=== PATIENT | male | born 1975 | race American Indian/Alaskan Native ===

== ENCOUNTER 2022-02-03 08:52 | Inpatient (IN) | payer SELFPAY ==
[2022-02-03 10:13] LABS: Basophils # (Auto) 0.1 K/mm3 (0.0-0.1); Basophils % (Auto) 0.5 % (0.0-1.8); Eosinophils # (Auto) 0.4 K/mm3 (0.0-0.4); Eosinophils % (Auto) 3.6 % (0.0-4.3); Hematocrit 44.2 % (35.5-45.6); Hemoglobin 15.1 gm/dl (11.8-15.2); Lymphocytes % (Auto) 16.7 % (13.4-35.0); Mean Corpuscular HGB Conc 34 % (32-34); Mean Corpuscular Volume 95 fl (84-94); Monocytes # (Auto) 1.1 K/mm3 (0.0-0.8); Monocytes % (Auto) 9.1 % (0.0-7.3); Platelet Count 290 K/mm3 (140-440); Red Blood Count 4.63 M/mm3 (3.65-5.03); Red Cell Distribution Width 14.3 % (13.2-15.2)
[2022-02-03 10:32] LABS: Alanine Aminotransferase 32 units/L (7-56); Albumin 4.4 g/dL (3.9-5); BUN/Creatinine Ratio 9; Bilirubin,Direct 0.2 mg/dL (0-0.2); Blood Urea Nitrogen 9 mg/dL (9-20); Calcium 9.2 mg/dL (8.4-10.2); Hemolysis Index 17
[2022-02-03] MEDS ORDERED: SODIUM CHLORIDE 0.9% 1000 ML 1,000 ML IV ONE ×2 (10:47→17:15)
[2022-02-03 11:10] LABS: Bilirubin,Urine NEG (Negative); Blood,Urine SM (Negative); Color,Urine Yellow (Yellow); Mucus,Urine FEW /HPF; Urobilinogen,Urine < 2.0 mg/dL (<2.0)
[2022-02-03] MEDS ORDERED: MORPHINE 4 MG/1 ML INJ IV ONE ×2 (14:26→17:15)
[2022-02-03] MEDS ORDERED: ONDANSETRON 4 MG/2 ML INJ IV ONE (14:26)
[2022-02-03] MEDS ORDERED: FAMOTIDINE 20 MG/2 ML INJ IV ONE (14:27)
--- NOTE | 2022-02-03 15:13 | Emergency Department Report ---
ED Abdominal Pain HPI - General Chief Complaint: Abdominal Pain Stated Complaint: STOMACH PAIN Time Seen by Provider: 02/03/22 10:12 Source: patient Mode of arrival: Ambulatory Limitations: No Limitations - History of Present Illness Initial Comments: 46-year-old male with no significant past medical or surgical history presents to the hospital complaining of generalized abdominal pain since yesterday a.m. Symptoms worsened last night. Pain described as generalized, burning, moderate to severe, and worse with palpation. No alleviating factors reported. decreased appetite reported. He denies associated symptoms including fever, nausea, vomiting, diarrhea, melena, or blood in stool. - Related Data Allergies Allergy/AdvReac Type Severity Reaction Status Date / Time No Known Allergies Allergy Verified 02/03/22 09:39 ED Review of Systems ROS: Stated complaint: STOMACH PAIN Other details as noted in HPI Comment: All other systems reviewed and negative ED Physical Exam - General Limitations: No Limitations - Other Other exam information: General: No acute distress Head: Atraumatic Eyes: normal appearance ENT: Moist mucous membranes Neck: Normal appearance, no midline tenderness Chest: Clear to auscultation bilaterally CV: Regular rate and rhythm Abdomen: Soft, normal bowel sounds, denies abdominal tenderness, no rebound or guarding Back: Normal inspection Extremity: Normal inspection, full range of motion Neuro: Alert O x 3, no facial asymmetry, speech clear, no gross motor sensory deficit Psych: Appropriate behavior Skin: No rash ED Course Vital Signs 02/03/22 09:36 Temperature 98 F Pulse Rate 98 H Respiratory 18 Rate Blood Pressure 160/98 [Right] O2 Sat by Pulse 98 Oximetry ED Medical Decision Making - Lab Data Result diagrams: 02/03/22 09:49 02/03/22 09:49 Lab Results 02/03/22 02/03/22 02/03/22 Range/Units 09:49 09:49 10:39 WBC 12.0 H (4.5-11.0) K/mm3 RBC 4.63 (3.65-5.03) M/mm3 Hgb 15.1 (11.8-15.2) gm/dl Hct 44.2 (35.5-45.6) % MCV 95 H (84-94) fl MCH 33 H (28-32) pg MCHC 34 (32-34) % RDW 14.3 (13.2-15.2) % Plt Count 290 (140-440) K/mm3 Lymph % (Auto) 16.7 (13.4-35.0) % [place] % (Auto) 9.1 H (0.0-7.3) % Eos % (Auto) 3.6 (0.0-4.3) % Baso % (Auto) 0.5 (0.0-1.8) % Lymph # (Auto) 2.0 (1.2-5.4) K/mm3 [place] # (Auto) 1.1 H (0.0-0.8) K/mm3 Eos # (Auto) 0.4 (0.0-0.4) K/mm3 Baso # (Auto) 0.1 (0.0-0.1) K/mm3 Seg Neutrophils % 70.1 H (40.0-70.0) % Seg Neutrophils # 8.4 H (1.8-7.7) K/mm3 Sodium 139 (137-145) mmol/L Potassium 3.1 L (3.6-5.0) mmol/L Chloride 102.0 (98-107) mmol/L Carbon Dioxide 24 (22-30) mmol/L Anion Gap 16 mmol/L BUN 9 (9-20) mg/dL Creatinine 1.0 (0.8-1.3) mg/dL Estimated GFR > 60 ml/min BUN/Creatinine Ratio 9 % Glucose 98 (75-100) mg/dL Calcium 9.2 (8.4-10.2) mg/dL Total Bilirubin 0.90 (0.1-1.2) mg/dL Direct Bilirubin 0.2 (0-0.2) mg/dL Indirect Bilirubin 0.7 mg/dL AST 34 (5-40) units/L ALT 32 (7-56) units/L Alkaline Phosphatase 99 (35-129) units/L Total Protein 8.0 (6.3-8.2) g/dL Albumin 4.4 (3.9-5) g/dL Albumin/Globulin Ratio 1.2 % Lipase 441 H (13-60) units/L Urine Color Yellow (Yellow) Urine Turbidity Clear (Clear) Urine pH 7.0 (5.0-7.0) Ur Specific [place] 1.010 (1.003-1.030) Urine Protein 100 mg/dl (Negative) mg/dL Urine Glucose (UA) Neg (Negative) mg/dL Urine Ketones Neg (Negative) mg/dL Urine Blood Sm (Negative) Urine Nitrite Neg (Negative) Urine Bilirubin Neg (Negative) Urine Urobilinogen < 2.0 (<2.0) mg/dL Ur Leukocyte Esterase Tr (Negative) Urine WBC (Auto) 3.0 (0.0-6.0) /HPF Urine RBC (Auto) 8.0 (0.0-6.0) /HPF U Epithel Cells (Auto) < 1.0 (0-13.0) /HPF Urine Mucus Few /HPF - Radiology Data Radiology results: report reviewed - Medical Decision Making 46-year-old male presents to the hospital with generalized abdominal pain without nausea vomiting. Pain radiation to the back. Elevated lipase and CT findings of acute pancreatitis. Patient endorses daily alcohol use likely the cause of pancreatitis. Pain improved with morphine and normal saline. Patient will be admitted to the hospital service for further treatment Critical Care Time: No Critical care attestation.: If time is entered above; I have spent that time in minutes in the direct care of this critically ill patient, excluding procedure time. ED Disposition Clinical Impression: Acute pancreatitis, Daily consumption of alcohol Disposition: ADMITTED INPATIENT Is pt being admited?: Yes Condition: Stable Time of Disposition: 17:18 (Dr. Parr)
[2022-02-03] MEDS ORDERED: SODIUM CHLORIDE 0.9% 1000 ML 1,000 ML ONE (15:34)
--- NOTE | 2022-02-03 16:35 | Cat Scan Report ---
CT ABDOMEN AND PELVIS WITH CONTRAST INDICATION / CLINICAL INFORMATION: abd pain. TECHNIQUE: Axial CT images were obtained through the abdomen and pelvis after 100 cc of Omnipaque [address] scans at this location are performed using CT dose reduction for ALARA by means of automated exposure control. COMPARISON: None available. FINDINGS: LOWER CHEST: No significant abnormality. AORTA / ARTERIES: No significant abnormality. IVC / VEINS: No significant abnormality. LYMPH NODES: No significant adenopathy. COLON: No significant abnormality. APPENDIX: No significant abnormality. STOMACH / SMALL BOWEL: Mild inflammation around the first and second portions of the duodenum. Otherw ise the stomach and small bowel are unremarkable. PERITONEUM: No free fluid. No free air. No fluid collection. LIVER: No significant abnormality. GALLBLADDER: No significant abnormality. BILE DUCTS: No significant abnormality. PANCREAS: There is peripancreatic inflammation. There is complete enhancement of the pancreas without peripancreatic fluid collection. SPLEEN: No significant abnormality. ADRENALS: No significant abnormality. RIGHT KIDNEY / URETER: No significant abnormality. LEFT KIDNEY / URETER: No significant abnormality. URINARY BLADDER: No significant abnormality. REPRODUCTIVE ORGANS: No significant abnormality. SKELETAL SYSTEM: No significant abnormality. ADDITIONAL FINDINGS: None. IMPRESSION: 1. Findings most suggestive of acute uncomplicated pancreatitis. Signer Name: Jeff Santiago DO Signed: 02/03/2022 4:31 PM Workstation Name: [id number]
[2022-02-03] MEDS ORDERED: POTASSIUM CHLORIDE ER 20 MEQ TAB PO ONE (17:00)
[2022-02-03] MEDS ORDERED: ACETAMINOPHEN 325 MG TAB PO PRN ×2 (20:01→21:19)
[2022-02-03] MEDS ORDERED: ONDANSETRON 4 MG/2 ML INJ IV PRN ×2 (20:01→21:19)
[2022-02-03] MEDS ORDERED: MORPHINE 2 MG/1 ML INJ IV PRN (20:01)
--- NOTE | 2022-02-03 21:19 | History and Physical Report ---
History of Present Illness Date of examination: 02/03/22 Date of admission: 02/03/2022 Chief complaint: Severe abdominal pain for 1 day History of present illness: 46-year-old -[place] male with no significant past medical history comes in for severe abdominal pain since yesterday morning. Pain is about 10 on a daily of 1-10. Sharp in nature. Intermittent. Associated with nausea. No vomiting or diarrhea. Also decreased appetite. Patient consumes alcohol in moderation on a regular basis. Patient lying in a reclining chair during my exam. In some distress because of the pain. Eating is an exacerbating factor. Not eating is a relieving factor. Past History Past Medical History: No medical history, hypertension (-Borderline-not on any medications) Past Surgical History: No surgical history Social history: lives with family, full code, other (Regular alcohol use: daily 3 drinks of vodka) Family history:HTN Review of systems Constitutional no weight loss or weight gain no fever or chills HEENT no sore throat no post nasal drip no diplopia Neck no neck stiffness no lymph gland enlargement Chest and lungs no shortness of breath cough or wheezing CVS no chest pain no diaphoresis no palpitations GI severe abdominal pain associated with nausea Genitourinary system no dysuria no flank pain Musculoskeletal system no muscle pains 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 Skin no rash no itching Psychiatric no depression no homicidal or suicidal tendencies Hematologic no lymphedema or bruising Endocrine no polydipsia no polyuria no cold intolerance no heat intolerance Past History Past Medical History: No medical history, hypertension (-Borderline-not on any medications) Past Surgical History: No surgical history Social history: lives with family, full code, other (Regular alcohol use: daily 3 drinks of vodka) Medications and Allergies Allergies Allergy/AdvReac Type Severity Reaction Status Date / Time No Known Allergies Allergy Verified 02/03/22 09:39 Home Medications Medication Instructions Recorded Confirmed Last Taken Type RX: No Known Home Medications [No 02/04/22 02/04/22 Unknown History Reported Home Medications] Active Meds: Active Medications Acetaminophen (Acetaminophen 325 Mg Tab) 650 mg PO Q4H PRN PRN Reason: Pain MILD(1-3)/Fever >100.5/DUNNE Morphine Sulfate (Morphine 2 Mg/1 Ml Inj) 2 mg IV Q4H PRN PRN Reason: Pain, Moderate (4-6) Morphine Sulfate (Morphine 4 Mg/1 Ml Inj) 4 mg IV Q4H PRN PRN Reason: Pain , Severe (7-10) Ondansetron HCl (Ondansetron 4 Mg/2 Ml Inj) 4 mg IV Q8H PRN PRN Reason: Nausea And Vomiting Sodium Chloride (Sodium Chloride 0.9% 10 Ml Flush Syringe) 10 ml IV BID DORIS Sodium Chloride (Sodium Chloride 0.9% 10 Ml Flush Syringe) 10 ml IV PRN PRN PRN Reason: LINE FLUSH Exam - Constitutional Vitals: Temp Pulse Resp BP Pulse Ox 98 F 98 H 18 160/98 98 02/03/22 09:36 02/03/22 09:36 02/03/22 09:36 02/03/22 09:36 02/03/22 09:36 General appearance: Present: mild distress, well-nourished - EENT Eyes: Present: PERRL ENT: hearing intact, clear oral mucosa - Neck Neck: Present: supple, normal ROM - Respiratory Respiratory effort: normal Respiratory: bilateral: CTA - Cardiovascular Heart rate: 78 Rhythm: regular Heart Sounds: Present: S1 & S2. Absent: rub, click - Extremities Extremities: no ischemia, pulses intact, pulses symmetrical, No edema Peripheral Pulses: within normal limits - Abdominal General gastrointestinal: Present: soft, tender, non-distended, normal bowel sounds Localized gastrointestinal: tender: diffuse, guarding: diffuse, rebound: diffuse Male genitourinary: Present: normal - Integumentary Integumentary: Present: clear, warm, dry - Musculoskeletal Musculoskeletal: gait normal, strength equal bilaterally - Psychiatric Psychiatric: appropriate mood/affect, intact judgment & insight - Neurologic Neurologic: CNII-XII intact, moves all extremities - Allied Health Allied health notes reviewed: nursing, case management Results - Labs CBC & Chem 7: 02/03/22 09:49 02/03/22 09:49 Labs: Laboratory Last Values WBC 12.0 K/mm3 (4.5-11.0) H 02/03/22 09:49 RBC 4.63 M/mm3 (3.65-5.03) 02/03/22 09:49 Hgb 15.1 gm/dl (11.8-15.2) 02/03/22 09:49 Hct 44.2 % (35.5-45.6) 02/03/22 09:49 MCV 95 fl (84-94) H 02/03/22 09:49 MCH 33 pg (28-32) H 02/03/22 09:49 MCHC 34 % (32-34) 02/03/22 09:49 RDW 14.3 % (13.2-15.2) 02/03/22 09:49 Plt Count 290 K/mm3 (140-440) 02/03/22 09:49 Lymph % (Auto) 16.7 % (13.4-35.0) 02/03/22 09:49 [place] % (Auto) 9.1 % (0.0-7.3) H 02/03/22 09:49 Eos % (Auto) 3.6 % (0.0-4.3) 02/03/22 09:49 Baso % (Auto) 0.5 % (0.0-1.8) 02/03/22 09:49 Lymph # (Auto) 2.0 K/mm3 (1.2-5.4) 02/03/22 09:49 [place] # (Auto) 1.1 K/mm3 (0.0-0.8) H 02/03/22 09:49 Eos # (Auto) 0.4 K/mm3 (0.0-0.4) 02/03/22 09:49 Baso # (Auto) 0.1 K/mm3 (0.0-0.1) 02/03/22 09:49 Seg Neutrophils % 70.1 % (40.0-70.0) H 02/03/22 09:49 Seg Neutrophils # 8.4 K/mm3 (1.8-7.7) H 02/03/22 09:49 Sodium 139 mmol/L (137-145) 02/03/22 09:49 Potassium 3.1 mmol/L (3.6-5.0) L 02/03/22 09:49 Chloride 102.0 mmol/L (98-107) 02/03/22 09:49 Carbon Dioxide 24 mmol/L (22-30) 02/03/22 09:49 Anion Gap 16 mmol/L 02/03/22 09:49 BUN 9 mg/dL (9-20) 02/03/22 09:49 Creatinine 1.0 mg/dL (0.8-1.3) 02/03/22 09:49 Estimated GFR > 60 ml/min 02/03/22 09:49 BUN/Creatinine Ratio 9 % 02/03/22 09:49 Glucose 98 mg/dL (75-100) 02/03/22 09:49 Calcium 9.2 mg/dL (8.4-10.2) 02/03/22 09:49 Total Bilirubin 0.90 mg/dL (0.1-1.2) 02/03/22 09:49 Direct Bilirubin 0.2 mg/dL (0-0.2) 02/03/22 09:49 Indirect Bilirubin 0.7 mg/dL 02/03/22 09:49 AST 34 units/L (5-40) 02/03/22 09:49 ALT 32 units/L (7-56) 02/03/22 09:49 Alkaline Phosphatase 99 units/L (35-129) 02/03/22 09:49 Total Protein 8.0 g/dL (6.3-8.2) 02/03/22 09:49 Albumin 4.4 g/dL (3.9-5) 02/03/22 09:49 Albumin/Globulin Ratio 1.2 % 02/03/22 09:49 Lipase 441 units/L (13-60) H 02/03/22 09:49 Urine Color Yellow (Yellow) 02/03/22 10:39 Urine Turbidity Clear (Clear) 02/03/22 10:39 Urine pH 7.0 (5.0-7.0) 02/03/22 10:39 Ur Specific [place] 1.010 (1.003-1.030) 02/03/22 10:39 Urine Protein 100 mg/dl mg/dL (Negative) 02/03/22 10:39 Urine Glucose (UA) Neg mg/dL (Negative) 02/03/22 10:39 Urine Ketones Neg mg/dL (Negative) 02/03/22 10:39 Urine Blood Sm (Negative) 02/03/22 10:39 Urine Nitrite Neg (Negative) 02/03/22 10:39 Urine Bilirubin Neg (Negative) 02/03/22 10:39 Urine Urobilinogen < 2.0 mg/dL (<2.0) 02/03/22 10:39 Ur Leukocyte Esterase Tr (Negative) 02/03/22 10:39 Urine WBC (Auto) 3.0 /HPF (0.0-6.0) 02/03/22 10:39 Urine RBC (Auto) 8.0 /HPF (0.0-6.0) 02/03/22 10:39 U Epithel Cells (Auto) < 1.0 /HPF (0-13.0) 02/03/22 10:39 Urine Mucus Few /HPF 02/03/22 10:39 Short CBC 02/03/22 Range/Units 09:49 WBC 12.0 H (4.5-11.0) K/mm3 Hgb 15.1 (11.8-15.2) gm/dl Hct 44.2 (35.5-45.6) % Plt Count 290 (140-440) K/mm3 BMP 02/03/22 09:49 Sodium 139 Potassium 3.1 L Chloride 102.0 Carbon Dioxide 24 BUN 9 Creatinine 1.0 Glucose 98 Calcium 9.2 Liver Function 02/03/22 Range/Units 09:49 Total Bilirubin 0.90 (0.1-1.2) mg/dL Direct Bilirubin 0.2 (0-0.2) mg/dL AST 34 (5-40) units/L ALT 32 (7-56) units/L Alkaline Phosphatase 99 (35-129) units/L Albumin 4.4 (3.9-5) g/dL Urine 02/03/22 Range/Units 10:39 Urine Color Yellow (Yellow) Urine pH 7.0 (5.0-7.0) Ur Specific [place] 1.010 (1.003-1.030) Urine Protein 100 mg/dl (Negative) mg/dL Urine Glucose (UA) Neg (Negative) mg/dL - Imaging and Cardiology Imaging and Cardiology: CT of the abdomen Mild inflammation around the first and second portion of the duodenum. Otherwise the stomach and small bowel are unremarkable. Pancreas there is peripancreatic inflammation. Enhancement of the pancreas without peripancreatic fluid collection. Assessment and Plan Advance Directives: Yes (Full Code) VTE prophylaxis?: Chemical Plan of care discussed with patient/family: Yes - Patient Problems (1) Acute pancreatitis Current Visit: Yes Status: Acute Qualifiers: Pancreatitis type: alcohol induced Plan to address problem: Pancreatitis is mild to moderate Lipase is 441 Pancreatic inflammation is present Will admit for 24 to 48 hours Ice chips only Counseled about regular alcohol intake and its effects on pancreas (2) EtOH dependence Current Visit: Yes Status: Chronic Qualifiers: Substance use status: uncomplicated Qualified Code(s): F10.20 - Alcohol dependence, uncomplicated Plan to address problem: CIWA protocol initiated (3) Hypokalemia Current Visit: Yes Status: Acute Plan to address problem: Supplemented (4) DVT prophylaxis Current Visit: Yes Status: Acute Plan to address problem: On heparin and GI prophylaxis (5) Advance care planning Current Visit: Yes Status: Acute Plan to address problem: Disease education conducted, care plan discussed, diagnosis discussed, prognosis discussed. Patient is full code. Patient acknowledged understanding and agreement with care plan. +30 minutes.
[2022-02-03] MEDS: MORPHINE 2 MG/1 ML INJ IV PRN (22:46)
[2022-02-03] MEDS: D5W/0.9% NACL 1,000 ML IV SCH (22:47)
[2022-02-04] MEDS: MORPHINE 2 MG/1 ML INJ IV PRN ×2 (02:42→07:57)
[2022-02-04] MEDS: LORazepam 2 MG/ML VIAL IV PRN (02:44)
[2022-02-04 06:24] LABS: Basophils % (Auto) 0.4 % (0.0-1.8); Eosinophils # (Auto) 0.7 K/mm3 (0.0-0.4); Eosinophils % (Auto) 6.6 % (0.0-4.3); Hematocrit 36.3 % (35.5-45.6); Hemoglobin 12.9 gm/dl (11.8-15.2); Lymphocytes # (Auto) 2.4 K/mm3 (1.2-5.4); Lymphocytes % (Auto) 23.7 % (13.4-35.0); Mean Corpuscular HGB Conc 36 % (32-34); Mean Corpuscular Volume 96 fl (84-94); Monocytes # (Auto) 0.8 K/mm3 (0.0-0.8); Monocytes % (Auto) 7.8 % (0.0-7.3); Platelet Count 242 K/mm3 (140-440); Red Blood Count 3.79 M/mm3 (3.65-5.03); Red Cell Distribution Width 13.9 % (13.2-15.2)
[2022-02-04 06:47] LABS: Alanine Aminotransferase 20 units/L (7-56); Albumin 3.5 g/dL (3.9-5); BUN/Creatinine Ratio 8; Blood Urea Nitrogen 8 mg/dL (9-20); Calcium 8.7 mg/dL (8.4-10.2); Hemolysis Index 3
[2022-02-04] MEDS ORDERED: POTASSIUM CHLORIDE ER 20 MEQ TAB PO ONE (07:20)
[2022-02-04] MEDS: D5W/0.9% NACL 1,000 ML IV SCH ×2 (07:58→17:57)
--- NOTE | 2022-02-04 09:14 | Progress Note ---
Assessment and Plan Assessment and plan: CT of the abdomen Mild inflammation around the first and second portion of the duodenum. Otherwise the stomach and small bowel are unremarkable. Pancreas there is peripancreatic inflammation. Enhancement of the pancreas without peripancreatic fluid collection. --Acute pancreatitis Lipase is 441-227 IV fluids, pain medications start clear liquids as tolerated Continue supportive care --EtOH dependence Strongly advised to quit alcohol intake Recommend alcohol rehabilitation if needed Thiamine folic acid --Monitor alcohol withdrawal symptoms CIWA protocol as needed Thiamine folic acid and multivitamin -- Hypokalemia Supplemented, monitor electrolytes --DVT prophylaxis Subcu Lovenox --Full code; -- Advance care planning Disease education conducted, care plan discussed, diagnosis discussed, , prognosis discussed. Patient acknowledged understanding and agreement with care plan. +30 minutes. Closely monitor the patient and adjust management as needed Plan of care reviewed with the patient and his nurse Disposition; follow clinically, discharge when stable History Interval history: I have seen and examined the patient at the bedside Patient's chart and medications reviewed Patient was admitted with acute pancreatitis Patient has significant history of alcohol use Complains of mild abdominal pain and mild nausea Vital signs noted Hospitalist Physical - Constitutional Vitals: Temp Pulse Resp BP Pulse Ox 98.5 F 72 16 123/79 100 02/04/22 04:39 02/04/22 04:39 02/04/22 04:39 02/04/22 04:39 02/04/22 08:04 General appearance: Present: mild distress, well-nourished - EENT Eyes: Present: PERRL, EOM intact - Neck Neck: Present: supple, normal ROM - Respiratory Respiratory effort: normal Respiratory: bilateral: diminished, negative: rales, rhonchi, wheezing - Cardiovascular Rhythm: regular Heart Sounds: Present: S1 & S2 - Extremities Extremities: no ischemia, No edema - Abdominal General gastrointestinal: soft, tender (Vague tenderness all over her abdomen ,no guarding no rigidity), normal bowel sounds - Integumentary Integumentary: Present: clear, warm - Psychiatric Psychiatric: appropriate mood/affect, cooperative - Neurologic Neurologic: CNII-XII intact, moves all extremities Results - Labs CBC & Chem 7: 02/04/22 05:20 02/04/22 05:20 Labs: Laboratory Last Values WBC 10.2 K/mm3 (4.5-11.0) 02/04/22 05:20 RBC 3.79 M/mm3 (3.65-5.03) 02/04/22 05:20 Hgb 12.9 gm/dl (11.8-15.2) 02/04/22 05:20 Hct 36.3 % (35.5-45.6) D 02/04/22 05:20 MCV 96 fl (84-94) H 02/04/22 05:20 MCH 34 pg (28-32) H 02/04/22 05:20 MCHC 36 % (32-34) H 02/04/22 05:20 RDW 13.9 % (13.2-15.2) 02/04/22 05:20 Plt Count 242 K/mm3 (140-440) 02/04/22 05:20 Lymph % (Auto) 23.7 % (13.4-35.0) 02/04/22 05:20 [place] % (Auto) 7.8 % (0.0-7.3) H 02/04/22 05:20 Eos % (Auto) 6.6 % (0.0-4.3) H 02/04/22 05:20 Baso % (Auto) 0.4 % (0.0-1.8) 02/04/22 05:20 Lymph # (Auto) 2.4 K/mm3 (1.2-5.4) 02/04/22 05:20 [place] # (Auto) 0.8 K/mm3 (0.0-0.8) 02/04/22 05:20 Eos # (Auto) 0.7 K/mm3 (0.0-0.4) H 02/04/22 05:20 Baso # (Auto) 0.0 K/mm3 (0.0-0.1) 02/04/22 05:20 Seg Neutrophils % 61.5 % (40.0-70.0) 02/04/22 05:20 Seg Neutrophils # 6.3 K/mm3 (1.8-7.7) 02/04/22 05:20 Sodium 142 mmol/L (137-145) 02/04/22 05:20 Potassium 3.2 mmol/L (3.6-5.0) L 02/04/22 05:20 Chloride 106.6 mmol/L (98-107) 02/04/22 05:20 Carbon Dioxide 24 mmol/L (22-30) 02/04/22 05:20 Anion Gap 15 mmol/L 02/04/22 05:20 BUN 8 mg/dL (9-20) L 02/04/22 05:20 Creatinine 1.0 mg/dL (0.8-1.3) 02/04/22 05:20 Estimated GFR > 60 ml/min 02/04/22 05:20 BUN/Creatinine Ratio 8 % 02/04/22 05:20 Glucose 93 mg/dL (75-100) 02/04/22 05:20 Calcium 8.7 mg/dL (8.4-10.2) 02/04/22 05:20 Total Bilirubin 0.80 mg/dL (0.1-1.2) 02/04/22 05:20 Direct Bilirubin 0.2 mg/dL (0-0.2) 02/03/22 09:49 Indirect Bilirubin 0.7 mg/dL 02/03/22 09:49 AST 22 units/L (5-40) 02/04/22 05:20 ALT 20 units/L (7-56) 02/04/22 05:20 Alkaline Phosphatase 82 units/L (35-129) 02/04/22 05:20 Total Protein 5.8 g/dL (6.3-8.2) L D 02/04/22 05:20 Albumin 3.5 g/dL (3.9-5) L 02/04/22 05:20 Albumin/Globulin Ratio 1.5 % 02/04/22 05:20 Amylase 164 units/L (27-131) H 02/04/22 05:20 Lipase 227 units/L (13-60) H 02/04/22 05:20 Urine Color Yellow (Yellow) 02/03/22 10:39 Urine Turbidity Clear (Clear) 02/03/22 10:39 Urine pH 7.0 (5.0-7.0) 02/03/22 10:39 Ur Specific [place] 1.010 (1.003-1.030) 02/03/22 10:39 Urine Protein 100 mg/dl mg/dL (Negative) 02/03/22 10:39 Urine Glucose (UA) Neg mg/dL (Negative) 02/03/22 10:39 Urine Ketones Neg mg/dL (Negative) 02/03/22 10:39 Urine Blood Sm (Negative) 02/03/22 10:39 Urine Nitrite Neg (Negative) 02/03/22 10:39 Urine Bilirubin Neg (Negative) 02/03/22 10:39 Urine Urobilinogen < 2.0 mg/dL (<2.0) 02/03/22 10:39 Ur Leukocyte Esterase Tr (Negative) 02/03/22 10:39 Urine WBC (Auto) 3.0 /HPF (0.0-6.0) 02/03/22 10:39 Urine RBC (Auto) 8.0 /HPF (0.0-6.0) 02/03/22 10:39 U Epithel Cells (Auto) < 1.0 /HPF (0-13.0) 02/03/22 10:39 Urine Mucus Few /HPF 02/03/22 10:39 [place]/IV: Voiding Method Toilet Active Medications - Current Medications Current Medications: Generic Name Dose Route Start Last Admin Trade Name Freq PRN Reason Stop Dose Admin Acetaminophen 650 mg 02/03/22 20:01 Acetaminophen 325 Mg Tab PO Q4H PRN Pain MILD(1-3)/Fever >100.5/DUNNE Dextrose/Sodium Chloride 1,000 mls @ 100 mls/hr 02/03/22 22:00 02/04/22 07:58 D5ns IV 100 mls/hr DIRECT DORIS Administration Lorazepam 2 mg 02/03/22 21:24 02/04/22 02:44 Lorazepam 2 Mg/Ml Vial IV 2 mg Q1H PRN Administration [facility] 8-15 Morphine Sulfate 4 mg 02/03/22 20:01 Morphine 4 Mg/1 Ml Inj IV Q4H PRN Pain , Severe (7-10) Morphine Sulfate 2 mg 02/03/22 21:19 02/04/22 07:57 Morphine 2 Mg/1 Ml Inj IV 2 mg Q4H PRN Administration Pain, Moderate (4-6) Ondansetron HCl 4 mg 02/03/22 20:01 Ondansetron 4 Mg/2 Ml Inj IV Q8H PRN Nausea And Vomiting Sodium Chloride 10 ml 02/03/22 22:00 02/03/22 22:57 Sodium Chloride 0.9% 10 Ml Flush Syringe IV 10 ml BID DORIS Administration Sodium Chloride 10 ml 02/03/22 20:01 Sodium Chloride 0.9% 10 Ml Flush Syringe IV PRN PRN LINE FLUSH
[2022-02-04] MEDS: MORPHINE 4 MG/1 ML INJ IV PRN ×2 (16:33→21:53)
[2022-02-04] MEDS ORDERED: ENOXAPARIN 40 MG/0.4 ML INJ SUB-Q SCH (22:00)
[2022-02-05] MEDS: LORazepam 2 MG/ML VIAL IV PRN (00:14)
[2022-02-05] MEDS: D5W/0.9% NACL 1,000 ML IV SCH (05:34)
[2022-02-05] MEDS ORDERED: POTASSIUM CHLORIDE ER 20 MEQ TAB PO NR (07:36)
[2022-02-05] MEDS ORDERED: THIAMINE 100 MG TAB PO SCH (10:00)
[2022-02-05] MEDS ORDERED: FOLIC ACID 1 MG TAB PO SCH (10:00)
--- NOTE | 2022-02-05 10:21 | Discharge Summary ---
Providers - Providers Date of Admission: 02/03/22 21:16 Date of discharge: 02/05/22 Attending physician: IMANI COATES MD Primary care physician: PERFECTO WHITAKER Hospitalization Reason for admission: acute pancreatitis Condition: Stable Hospital course: 46-year-old male with history of alcohol abuse who presented with severe abdominal pain. Imaging and labs were suggestive of acute pancreatitis. He was started on IV fluids and made n.p.o. His pain improved with as needed pain medications and hydration. Patient was transitioned to oral diet and tolerated it without issue. Once clinically stable, he was discharged home. Disposition: HOME / SELF CARE / HOMELESS Final Discharge Diagnosis (Prints w/discharge instructions): Acute pancreatitis. Alcohol dependence. Hypokalemia Time spent for discharge: 40 minutes Core Measure Documentation - Palliative Care Palliative Care/ Comfort Measures: Not Applicable - Core Measures Any of the following diagnoses?: none Exam - Physical Exam Narrative exam: GENERAL: Well-developed well-nourished. Sitting on the side of the bed in no acute distress. HEENT: Normocephalic. Atraumatic. CHEST/LUNGS: CTAB on room air HEART/CARDIOVASCULAR: RRR. No murmur, rubs or gallops appreciated. ABDOMEN: +BS. NT/ND. SKIN: Diffuse body tattoos. NEURO: No focal motor deficit. Follows all commands and is ambulatory. MUSCULOSKELETAL: No joint effusion EXTREMITIES: No cyanosis, clubbing or edema. PSYCH: Cooperative. - Constitutional Vitals: Temp Pulse Resp BP Pulse Ox 98.6 F 87 18 163/87 100 02/05/22 05:23 02/05/22 05:23 02/05/22 05:23 02/05/22 05:23 02/05/22 05:23 Plan Care Plan Goals: Please schedule appointment with the primary care provider information provided to you. Please refrain from drinking at this time to prevent further episodes of acute pancreatitis. Follow up with: PERFECTO WHITAKER MD [Primary Care Provider] - 3-5 Days Prescriptions: traZODone [Desyrel] 50 mg PO QHS PRN 14 Days #14 tab PRN Reason: Insomnia amLODIPine 5 mg PO DAILY 30 Days #30 tab Multivitamin with Minerals [Multivitamins with Minerals] 1 each PO DAILY 30 Days #30 tab
[2022-02-05] MEDS ORDERED: hydrALAZINE 10 MG TAB PO SCH (11:48)
[2022-02-05 13:01] VITALS: BP 163/93
== END 2022-02-05 13:13 | disposition home or self-care (01) | DRG 440 ==
LOC: ED 08:52 → 3A 21:16
PROVIDERS: ADMIT Internal Medicine; ATTEND Student in an Organized Health Care Education/Training Program
DX: K85.20 Alcohol induced acute pancreatitis without necrosis or infection (principal); E87.6 Hypokalemia; F10.20 Alcohol dependence, uncomplicated; Y90.9 Presence of alcohol in blood, level not specified; Z82.49 Family history of ischemic heart disease and other diseases of the circulatory system; Z79.899 Other long term (current) drug therapy; Z71.41 Alcohol abuse counseling and surveillance of alcoholic
CPT/HCPCS: 36415; 74177; 80048; 80053; 80076; 81001; 82150; 83690; 85025; G0378; J3490; J1650; J2060; J2270; J2405; J7030; J7042; Q9967